=== PATIENT | female | born 1985 | race Caucasian/White ===

== ENCOUNTER → 2017-02-27 | Outpatient (CLI) | payer OTHER ==
--- NOTE | 2017-02-27 08:02 | CT ---
EXAMINATION TYPE: CT brain wo con DATE OF EXAM: 02/27/2017 COMPARISON: NONE HISTORY: Headaches CT DLP: 1005 mGycm Automated exposure control for dose reduction was used. FINDINGS: Central structures are midline. There is no evidence of hydrocephalus. No focal lesion, mass effect o r midline shift is seen. I do not see evidence of intracranial blood. Visualized portions of the paranasal sinuses are clear. There is fluid in several of the mastoid air cells bilaterally. IMPRESSION: 1. NO ACUTE INTRACRANIAL ABNORMALITY. 2. I SUSPECT BILATERAL MASTOIDITIS.
== END | disposition home or self-care (01) ==
LOC: RADCTMAIN 07:36
PROVIDERS: ATTEND Family Medicine
DX: R51 Headache (principal)
CPT/HCPCS: 70450

== ENCOUNTER 2017-10-28 22:27 | Emergency (ER) | payer OTHER ==
[2017-10-28 22:38] VITALS: RESP 18
[2017-10-28] MEDS ORDERED: LORazepam 1 MG TAB PO STA (23:09)
--- NOTE | 2017-10-28 23:21 | ED ---
Recheck HPI - General Chief Complaint: Recheck/Abnormal Lab/Rx Stated Complaint: High BP/confusion-poss med reaction Time Seen by Provider: 10/28/17 22:43 Source: patient Mode of arrival: ambulatory Limitations: no limitations - History of Present Illness Initial Comments: This patient is a 32-year-old woman who presents with a constellation of symptoms that she believes may be related to a medication that started. She states that her physician gave her to take for weight loss. She states that she started this 3 days ago and that since she started taking she just has not felt right. She noted that her blood pressure has been high, she has at times had racing heart. She also Has been having intermittent headaches, feeling dizzy and lightheaded states that she just feels "hazy." Complaint: other Onset/Timin -: days(s) Returns Today for: other Context: other - Related Data Home Medications Medication Instructions Recorded Confirmed Cholecalciferol [Vitamin D3] 4,000 unit PO HS 10/28/17 10/28/17 FLUoxetine HCL [PROzac] 30 mg PO HS 10/28/17 10/28/17 Phentermine HCl [Adipex-P] 37.5 mg PO QAM 10/28/17 10/28/17 Ranitidine HCl 150 mg PO HS 10/28/17 10/28/17 Vitamin E 100 unit PO HS 10/28/17 10/28/17 Allergies Allergy/AdvReac Type Severity Reaction Status Date / Time No Known Allergies Allergy Verified 10/28/17 22:49 Review of Systems ROS Statement: Those systems with pertinent positive or pertinent negative responses have been documented in the HPI. ROS Other: All systems not noted in ROS Statement are negative. Constitutional: Denies: fever, chills, weakness Eyes: Denies: vision change Respiratory: Denies: cough, dyspnea Cardiovascular: Reports: palpitations. Denies: chest pain, edema, syncope Gastrointestinal: Reports: nausea. Denies: abdominal pain, vomiting, diarrhea Genitourinary: Denies: dysuria, hematuria Musculoskeletal: Denies: back pain Skin: Denies: rash Neurological: Reports: headache. Denies: weakness, numbness, paresthesias Psychiatric: Reports: anxiety Past Medical History Past Medical History: No Reported History History of Any Multi-Drug Resistant Organisms: None Reported Past Surgical History: Cholecystectomy Past Psychological History: Anxiety Smoking Status: Former smoker Past Alcohol Use History: None Reported Past Drug Use History: None Reported General Exam Limitations: no limitations General appearance: alert, in no apparent distress Head exam: Present: atraumatic, normocephalic Eye exam: Present: normal appearance. Absent: scleral icterus, conjunctival injection ENT exam: Present: mucous membranes dry Neck exam: Present: normal inspection, full ROM Respiratory exam: Present: normal lung sounds bilaterally. Absent: respiratory distress, wheezes, rales, rhonchi, stridor Cardiovascular Exam: Present: regular rate, normal rhythm, normal heart sounds. Absent: systolic murmur, diastolic murmur, rubs, gallop GI/Abdominal exam: Present: soft. Absent: distended, tenderness, guarding, rebound, rigid Extremities exam: Present: normal inspection, normal capillary refill. Absent: pedal edema, calf tenderness Back exam: Present: normal inspection. Absent: CVA tenderness (R), CVA tenderness (L) Neurological exam: Present: alert, oriented X3, CN II-XII intact, normal gait Skin exam: Present: warm, dry, intact, normal color. Absent: rash Course Vital Signs 10/28/17 10/28/17 22:33 23:26 Temperature 97.8 F 98.5 F Pulse Rate 84 78 Respiratory 18 18 Rate Blood Pressure 180/87 123/70 O2 Sat by Pulse 100 98 Oximetry Disposition Clinical Impression: Medication adverse effect Disposition: HOME SELF-CARE Condition: Good Instructions: Adverse Drug Reaction (ED) Referrals: Madeline Cash III, MD [Primary Care Provider] - 1-2 days
[2017-10-28 23:27] VITALS: BP 123/70; PULSE 78; TEMP 98.5
== END 2017-10-28 23:27 | disposition home or self-care (01) ==
LOC: EC 22:27
DX: R51 Headache (principal); T50.5X5A Adverse effect of appetite depressants, initial encounter; R42 Dizziness and giddiness; R00.0 Tachycardia, unspecified; F41.9 Anxiety disorder, unspecified; Z87.891 Personal history of nicotine dependence; Z79.899 Other long term (current) drug therapy
CPT/HCPCS: 99284

== ENCOUNTER → 2020-07-31 | Outpatient (CLI) | payer OTHER | END | disposition home or self-care (01) | LOC: LABWHC1 13:51 | PROVIDERS: ATTEND Emergency Medicine | DX: Z20.828 Contact with and (suspected) exposure to other viral communicable diseases (principal) | CPT/HCPCS: U0003; C9803 ==

== ENCOUNTER → 2021-01-19 | Outpatient (CLI) | payer OTHER ==
--- NOTE | 2021-01-19 12:06 | CT ---
EXAMINATION TYPE: CT abdomen pelvis w con DATE OF EXAM: 01/19/2021 COMPARISON: None HISTORY: LLQ pain CT DLP: 1899.90 mGycm CONTRAST: CT scan of the abdomen and pelvis is performed with Oral Contrast and with IV Contrast, patient injec michelle with 100 ml mL of Isovue 300. FINDINGS: LUNG BASES-: No visible nodule. No infiltrate. LIVER/GB: Cholecystectomy clips are in place. No space occupying hepatic lesion. Biliary tree is o f normal caliber. PANCREAS: No inflammation. No distinct mass. SPLEEN: No splenic enlargement. No lesion seen. ADRENALS: No nodule. No thickening. KIDNEYS/BLADDER: No hydronephrosis. No nephrolithiasis. Subcentimeter simple cyst lower pole left k idney. Urinary bladder grossly unremarkable. BOWEL: Normal appendix. Normal bowel caliber. No inflammation. GENITAL ORGANS: No gross abnormality. LYMPH NODES: No greater than 1cm abdominal or pelvic lymph nodes are appreciated. AORTA: No significant abnormality. OSSEOUS STRUCTURES: No significant abnormality is seen. OTHER: No significant additional abnormality is seen. IMPRESSION: 1. No significant abnormality to account for the patient's symptoms.
== END | disposition home or self-care (01) ==
LOC: RADCTMAIN 09:34
PROVIDERS: ATTEND Physician Assistant
DX: R10.32 Left lower quadrant pain (principal); Z90.49 Acquired absence of other specified parts of digestive tract
CPT/HCPCS: 74177; Q9967

== ENCOUNTER 2023-05-30 15:33 | Emergency (ER) | payer OTHER ==
[2023-05-30 15:57] VITALS: RESP 16
[2023-05-30] MEDS ORDERED: DEXAMETHASONE SOD PHOSPHATE 10 MG/ML 1 ML VIAL IVP STA (18:05)
[2023-05-30] MEDS ORDERED: KETOROLAC 15 MG/ML 1 ML VIAL IVP STA (18:05)
[2023-05-30] MEDS ORDERED: MAGNESIUM SULFATE-D5W PMX 1 GM in DEXTROSE/WATER 1 100ML.BAG IVPB ONE (18:05)
[2023-05-30 18:40] LABS: ALT 22 U/L (4-34); AST 25 U/L (14-36); African American GFR (CKD) >90 (>60 ml/min/1.73 sqM); Albumin 4.4 g/dL (3.5-5.0); Alkaline Phosphatase 72 U/L (38-126); Anion Gap 6 mmol/L; Blood Urea Nitrogen 16 mg/dL (7-17); Carbon Dioxide 26 mmol/L (22-30); Chloride 105 mmol/L (98-107); Glucose 93 mg/dL (74-99); Non-African American GFR(CKD) >90 (>60 ml/min/1.73 sqM); Potassium 4.4 mmol/L (3.5-5.1); Sodium 137 mmol/L (137-145); Total Bilirubin 0.6 mg/dL (0.2-1.3); Total Protein 7.2 g/dL (6.3-8.2)
[2023-05-30 18:54] LABS: Appearance,Urine Cloudy (Clear); Bacteria,Urine Many /hpf; Bilirubin,Urine Negative (Negative); Blood,Urine Negative (Negative); Color,Urine Colorless; Glucose,Urine (UA) Negative (Negative); Ketones,Urine Negative (Negative); Leukocyte Esterase,Urine Small (Negative); Mucus,Urine Rare /hpf; Nitrite,Urine Negative (Negative); Protein,Urine Negative (Negative); RBC,Urine 2 /hpf (0-5); Specific Gravity,Urine 1.011 (1.001-1.035); Squamous Epithelial Cell,Urine 7 /hpf (0-4); Urobilinogen,Urine <2.0 mg/dL (<2.0); WBC,Urine 9 /hpf (0-5)
--- NOTE | 2023-05-30 19:44 | CT ---
EXAMINATION TYPE: CT brain wo con CT DLP: 1108.4 mGycm, Automated exposure control for dose reduction was used. DATE OF EXAM: 05/30/2023 7:23 PM COMPARISON: 02/27/2017. CLINICAL INDICATION:Female, 37 years old with history of visual disturbance, Migraine x2wks, blurred vision, hypertension. TECHNIQUE: Brain: Axial CT images of the brain were obtained with coronal and sagittal reformats created and rev iewed. Contrast used: None. Oral contrast used: None. FINDINGS: Brain: Extra-axial spaces: No abnormal extra-axial fluid collections. Ventricular system: Within normal limits Cerebral parenchyma: No acute intraparenchymal hemorrhage or mass effect. The mahan-white junction is well differentiated. Cerebellum: Unremarkable. Mass effect: No evidence of midline shift. Intracranial vasculature: unremarkable Soft tissues: Normal. Calvarium/osseous structures: No depressed skull fracture. Paranasal sinuses and mastoid air cells: Mild scattered paranasal sinus disease. Visualized orbits: Orbital contents are intact. IMPRESSION: No acute intracranial process.
[2023-05-30 20:13] LABS: Basophils % (A) 0 %; Eosinophils # (A) 0.1 k/uL (0-0.7); Eosinophils % (A) 1 %; HCT 43.9 % (34.0-46.0); HGB 14.4 gm/dL (11.4-16.0); Lymphocytes % (A) 9 %; MCH 27.2 pg (25.0-35.0); MCHC 32.8 g/dL (31.0-37.0); MCV 83.1 fL (80.0-100.0); Mean Platelet Volume 8.6; Monocytes # (A) 0.1 k/uL (0-1.0); Monocytes % (A) 1 %; Neutrophils # (A) 9.1 k/uL (1.3-7.7); Neutrophils % (A) 88 %; Platelet Count 277 k/uL (150-450); RBC 5.28 m/uL (3.80-5.40); RDW 13.6 % (11.5-15.5); WBC 10.4 k/uL (3.8-10.6)
[2023-05-30 20:18] LABS: INR 0.9 (<1.2); Partial Thromboplastin Time 24.7 sec (22.0-30.0); Prothrombin Time 9.8 sec (9.0-12.0)
--- NOTE | 2023-05-30 20:37 | ED ---
General Adult HPI - General Chief complaint: Neuro Symptoms/Deficit Stated complaint: Headache Time Seen by Provider: 05/30/23 15:40 Source: EMS Mode of arrival: EMS Limitations: no limitations - History of Present Illness Initial comments: 37-year-old female presents to the emergency department reporting acute visual disturbance and headache. States that she was at home and had a headache this morning. She does have a history of frequent headaches and previously was on Topamax. States she does not currently take any medications right now for her headaches. States that she felt like it slightly improved. She then suddenly noticed that she had some blurred vision and had difficulty reading the text messages on her phone. She drove to her grandmother's house and took her blood pressure. Found that it was elevated. States that she did not have a way of getting to the hospital and therefore called EMS. She has no history of high blood pressure. She states that the visual disturbance lasted for 30-40 minutes but has since resolved. EMS did establish an IV. Currently the headache is 8 out of 10. Denies speech difficulties. No unilateral numbness or weakness. Denies fevers. No neck stiffness. No other alleviating, precipitating or modifying factors - Related Data Home Medications Medication Instructions Recorded Confirmed Cholecalciferol [Vitamin D3] 4,000 unit PO HS 10/28/17 10/28/17 FLUoxetine HCL [PROzac] 30 mg PO HS 10/28/17 10/28/17 Phentermine HCl [Adipex-P] 37.5 mg PO QAM 10/28/17 10/28/17 Vitamin E 100 unit PO HS 10/28/17 10/28/17 raNITIdine HCL [Zantac] 150 mg PO HS 10/28/17 10/28/17 Previous Rx's Medication Instructions Recorded Butalb/Acetaminophen/Caffeine 1 - 2 tab PO Q4H PRN #20 tab 05/30/23 [Fioricet 50-325-40] Allergies Allergy/AdvReac Type Severity Reaction Status Date / Time No Known Allergies Allergy Verified 10/28/17 22:49 Review of Systems ROS Statement: Those systems with pertinent positive or pertinent negative responses have been documented in the HPI. ROS Other: All systems not noted in ROS Statement are negative. Past Medical History Past Medical History: No Reported History History of Any Multi-Drug Resistant Organisms: None Reported Past Surgical History: Cholecystectomy, Tubal Ligation Additional Past Surgical History / Comment(s): Breast reduction, carpal tunnel surgery Past Psychological History: Anxiety Past Alcohol Use History: None Reported Past Drug Use History: None Reported General Exam Limitations: no limitations General appearance: alert, in no apparent distress Head exam: Present: atraumatic, normocephalic, normal inspection Eye exam: Present: normal appearance, PERRL, EOMI. Absent: scleral icterus, conjunctival injection, periorbital swelling ENT exam: Present: normal exam, mucous membranes moist Neck exam: Present: normal inspection. Absent: tenderness, meningismus, lymphadenopathy Respiratory exam: Present: normal lung sounds bilaterally. Absent: respiratory distress, wheezes, rales, rhonchi, stridor Cardiovascular Exam: Present: regular rate, normal rhythm, normal heart sounds. Absent: systolic murmur, diastolic murmur, rubs, gallop, clicks GI/Abdominal exam: Present: soft, normal bowel sounds. Absent: distended, tenderness, guarding, rebound, rigid Extremities exam: Present: normal inspection, full ROM, normal capillary refill. Absent: tenderness, pedal edema, joint swelling, calf tenderness Back exam: Present: normal inspection Neurological exam: Present: alert, oriented X3, CN II-XII intact Psychiatric exam: Present: normal affect, normal mood Skin exam: Present: warm, dry, intact, normal color. Absent: rash Course Vital Signs 05/30/23 05/30/23 15:39 20:47 Temperature 98.3 F 98.4 F Pulse Rate 74 86 Respiratory 16 16 Rate Blood Pressure 157/105 133/86 O2 Sat by Pulse 98 97 Oximetry Medical Decision Making - Medical Decision Making Was pt. sent in by a medical professional or institution (, PA, CENTER PUNCH OPERATOR, urgent care, hospital, or usp...) When possible be specific @ -No Did you speak to anyone other than the patient for history (EMS, parent, family, police, friend...)? What history was obtained from this source @ -Spoke with EMS for history Did you review nursing and triage notes (agree or disagree)? Why? @ -I reviewed and agree with nursing and triage notes Were old charts reviewed (outside hosp., previous admission, EMS record, old EKG, old radiological studies, urgent care reports/EKG's, usp records)? Report findings @ -No old charts were reviewed Differential Diagnosis (chest pain, altered mental status, abdominal pain women, abdominal pain men, vaginal bleeding, weakness, fever, dyspnea, syncope, headache, dizziness, GI bleed, back pain, seizure, CVA, palpatations, mental health, musculoskeletal)? @ -Differential Headache: Migraine, tension, cluster, carbon monoxide, central venous thrombosis, pension karma temporal arteritis, acute closure glaucoma, intercranial hemorrhage, mastoiditis, sinusitis, head injury, this is not meant to be an all-inclusive list. EKG interpreted by me (3pts min.). @ -Yes and demonstrates sinus rhythm with rate of 66. UT interval 159. QRS 94. QTC of 391. No acute ST segment elevations or depressions X-rays interpreted by me (1pt min.). @ -None done CT interpreted by me (1pt min.). @ -Yes and demonstrates no acute intracranial process U/S interpreted by me (1pt. min.). @ -None done What testing was considered but not performed or refused? (CT, X-rays, U/S, labs)? Why? @ -None What meds were considered but not given or refused? Why? @ -Reglan however she states that this medication gives her panic attack Did you discuss the management of the patient with other professionals (professionals i.e. , PA, CENTER PUNCH OPERATOR, lab, RT, psych nurse, bilingual social worker, armature winder helper repair, teacher, tax revenue officer, case packer)? Give summary @ -No Was smoking cessation discussed for >3mins.? @ -No Was critical care preformed (if so, how long)? @ -No Were there social determinants of health that impacted care today? How? (Homelessness, low income, unemployed, alcoholism, drug addiction, transportation, low edu. Level, literacy, decrease access to med. care, retirement, r ehab)? @ -No Was there de-escalation of care discussed even if they declined (Discuss DNR or withdrawal of care, Hospice)? DNR status @ -No What co-morbidities impacted this encounter? (DM, HTN, Smoking, COPD, CAD, Cancer, CVA, ARF, Chemo, Hep., AIDS, mental health diagnosis, sleep apnea, morbid obesity)? @ -Chronic migraines Was patient admitted / discharged? Hospital course, mention meds given and route, prescriptions, significant lab abnormalities, going to OR and other pertinent info. @ -Upon arrival patient was placed into room 20. A thorough history and physical exam was performed. IV is established and laboratory studies are conducted. She was given Toradol, Decadron and magnesium. CT is performed. Results are discussed with the patient. She reports that her headache is improved at this time. I did offer further pain medications however she refused. I did discuss the diagnosis, differential treatment options. Patient was agreeable to trying Fioricet for her frequent migraines at home. She has no acute neurologic findings at this time. She will be discharged and given follow-up for neurologists in [facility]. Instructed to return for any new or worsening symptoms. Patient was agreeable with this plan she was discharged in stable condition Undiagnosed new problem with uncertain prognosis? @ -Yes Drug Therapy requiring intensive monitoring for toxicity (Heparin, Nitro, Insulin, Cardizem)? @ -No Were any procedures done? @ -No Diagnosis/symptom? @ -Acute transient visual disturbance, transient hypertension - resolved, acute cephalgia Acute, or Chronic, or Acute on Chronic? @ -Acute Uncomplicated (without systemic symptoms) or Complicated (systemic symptoms)? @ -complicated Side effects of treatment? @ -No Exacerbation, Progression, or Severe Exacerbation? @ -No Poses a threat to life or bodily function? How? (Chest pain, USA, PA, pneumonia, PE, COPD, DKA, ARF, appy, cholecystitis, CVA, Diverticulitis, Homicidal, Suicidal, threat to staff... and all critical care pts) @ -No - Lab Data Result diagrams: 05/30/23 19:53 05/30/23 18:08 Lab Results 05/30/23 05/30/23 05/30/23 Range/Units 18:08 18:08 18:08 WBC (3.8-10.6) k/uL RBC (3.80-5.40) m/uL Hgb (11.4-16.0) gm/dL Hct (34.0-46.0) % MCV (80.0-100.0) fL MCH (25.0-35.0) pg MCHC (31.0-37.0) g/dL RDW (11.5-15.5) % Plt Count (150-450) k/uL MPV Neutrophils % % Lymphocytes % % Monocytes % % Eosinophils % % Basophils % % Neutrophils # (1.3-7.7) k/uL Lymphocytes # (1.0-4.8) k/uL Monocytes # (0-1.0) k/uL Eosinophils # (0-0.7) k/uL Basophils # (0-0.2) k/uL PT (9.0-12.0) sec INR (<1.2) APTT (22.0-30.0) sec Sodium 137 (137-145) mmol/L Potassium 4.4 (3.5-5.1) mmol/L Chloride 105 (98-107) mmol/L Carbon Dioxide 26 (22-30) mmol/L Anion Gap 6 mmol/L BUN 16 (7-17) mg/dL Creatinine 0.50 L (0.52-1.04) mg/dL Est GFR (CKD-EPI)AfAm >90 (>60 ml/min/1.73 sqM) Est GFR (CKD-EPI)NonAf >90 (>60 ml/min/1.73 sqM) Glucose 93 (74-99) mg/dL Calcium 9.0 (8.4-10.2) mg/dL Total Bilirubin 0.6 (0.2-1.3) mg/dL AST 25 (14-36) U/L ALT 22 (4-34) U/L Alkaline Phosphatase 72 (38-126) U/L Total Protein 7.2 (6.3-8.2) g/dL Albumin 4.4 (3.5-5.0) g/dL Urine Color Colorless Urine Appearance Cloudy H (Clear) Urine pH 7.0 (5.0-8.0) Ur Specific [place] 1.011 (1.001-1.035) Urine Protein Negative (Negative) Urine Glucose (UA) Negative (Negative) Urine Ketones Negative (Negative) Urine Blood Negative (Negative) Urine Nitrite Negative (Negative) Urine Bilirubin Negative (Negative) Urine Urobilinogen <2.0 (<2.0) mg/dL Ur Leukocyte Esterase Small H (Negative) Urine RBC 2 (0-5) /hpf Urine WBC 9 H (0-5) /hpf Ur Squamous Epith Cells 7 H (0-4) /hpf Urine Bacteria Many H (None) /hpf Urine Mucus Rare H (None) /hpf Urine HCG, Qual Not Detected (Not Detectd) 05/30/23 05/30/23 Range/Units 19:53 19:53 WBC 10.4 (3.8-10.6) k/uL RBC 5.28 (3.80-5.40) m/uL Hgb 14.4 (11.4-16.0) gm/dL Hct 43.9 (34.0-46.0) % MCV 83.1 (80.0-100.0) fL MCH 27.2 (25.0-35.0) pg MCHC 32.8 (31.0-37.0) g/dL RDW 13.6 (11.5-15.5) % Plt Count 277 (150-450) k/uL MPV 8.6 Neutrophils % 88 % Lymphocytes % 9 % Monocytes % 1 % Eosinophils % 1 % Basophils % 0 % Neutrophils # 9.1 H (1.3-7.7) k/uL Lymphocytes # 1.0 (1.0-4.8) k/uL Monocytes # 0.1 (0-1.0) k/uL Eosinophils # 0.1 (0-0.7) k/uL Basophils # 0.0 (0-0.2) k/uL PT 9.8 (9.0-12.0) sec INR 0.9 (<1.2) APTT 24.7 (22.0-30.0) sec Sodium (137-145) mmol/L Potassium (3.5-5.1) mmol/L Chloride (98-107) mmol/L Carbon Dioxide (22-30) mmol/L Anion Gap mmol/L BUN (7-17) mg/dL Creatinine (0.52-1.04) mg/dL Est GFR (CKD-EPI)AfAm (>60 ml/min/1.73 sqM) Est GFR (CKD-EPI)NonAf (>60 ml/min/1.73 sqM) Glucose (74-99) mg/dL Calcium (8.4-10.2) mg/dL Total Bilirubin (0.2-1.3) mg/dL AST (14-36) U/L ALT (4-34) U/L Alkaline Phosphatase (38-126) U/L Total Protein (6.3-8.2) g/dL Albumin (3.5-5.0) g/dL Urine Color Urine Appearance (Clear) Urine pH (5.0-8.0) Ur Specific [place] (1.001-1.035) Urine Protein (Negative) Urine Glucose (UA) (Negative) Urine Ketones (Negative) Urine Blood (Negative) Urine Nitrite (Negative) Urine Bilirubin (Negative) Urine Urobilinogen (<2.0) mg/dL Ur Leukocyte Esterase (Negative) Urine RBC (0-5) /hpf Urine WBC (0-5) /hpf Ur Squamous Epith Cells (0-4) /hpf Urine Bacteria (None) /hpf Urine Mucus (None) /hpf Urine HCG, Qual (Not Detectd) Disposition Clinical Impression: Visual disturbance, Migraine Disposition: HOME SELF-CARE Condition: Stable Instructions (If sedation given, give patient instructions): Migraine Headache (ED) Additional Instructions: Please follow-up with a neurologist for your migraines. return for any new or worsening symptoms Prescriptions: Butalb/Acetaminophen/Caffeine [Fioricet 50-325-40] 1 - 2 tab PO Q4H PRN #20 tab PRN Reason: Headache Is patient prescribed a controlled substance at d/c from ED?: No Referrals: Adela Verma MD [Primary Care Provider] - 1-2 days Reginald Ventura MD [Medical Doctor] - 1-2 days Robert Wallis DO [STAFF PHYSICIAN] - 1-2 days Julio Mabry MD [STAFF PHYSICIAN] - 1-2 days Catalina James MD [REFERRING] - 1-2 days Natalya James MD [REFERRING] - 1-2 days Time of Disposition: 20:36
[2023-05-30 20:56] VITALS: BP 133/86; PULSE 86; TEMP 98.4
== END 2023-05-30 21:05 | disposition home or self-care (01) ==
LOC: EC 15:33
DX: H53.9 Unspecified visual disturbance (principal); G43.909 Migraine, unspecified, not intractable, without status migrainosus; Z86.59 Personal history of other mental and behavioral disorders; Z90.49 Acquired absence of other specified parts of digestive tract
CPT/HCPCS: 36415; 80053; 85025; 85610; 85730; 81001; 81025; 70450; 99285; 96365; 96375 ×2; J1100; J3475; J1885

== ENCOUNTER → 2024-08-19 | Outpatient (CLI) | payer OTHER ==
--- NOTE | 2024-08-20 17:41 | US ---
EXAMINATION TYPE: US abdomen complete DATE OF EXAM: 08/19/2024 COMPARISON: CT 2020, US 2011 CLINICAL INDICATION: Female, 39 years old with history of R10.12 LEFT UPPER QUADRANT PAIN; Left upper quadrant pain x 1 year. Patient states the pain has gotten worse x a couple months. Hx cholecystecto my. TECHNIQUE: Grayscale and color Doppler imaging of the abdomen was performed. FINDINGS: EXAM MEASUREMENTS: Liver Length: 16.3 cm Gallbladder Wall: Cholecystectomy CBD: 0.26 cm, color Doppler imaging was utilized to isolate the common bile duct for measurement. Spleen: 10.0 cm Right Kidney: 11.3 x 5.2 x 4.5 cm Left Kidney: 10.9 x 5.5 x 5.2 cm LOGGING [employer]IPMENT MECH[employer]IC NOTES: Exam is limited due to body habitus and gas. Pancreas: Not well visualized Liver: Appears slightly coarse echotexture. Gallbladder: Cholecystectomy Evidence for sonographic Long's sign: No CBD: Appears wnl Spleen: Appears wnl Right Kidney: Renal pelvis appears prominent. Left Kidney: *Hyperechoic focus seen upper pole: 0.6 x 0.5 x 0.3 cm. Upper IVC: Appears wnl Abd Aorta: Portions seen appear wnl. Slightly limited due to gas. IMPRESSION: 1. Coarsened echotexture to liver correlate with markers for hepatocellular disease. 2. Left nonobstructing renal calculus [facility], , 08/20/2024 5:38 PM
== END | disposition home or self-care (01) ==
LOC: RADUSWWP 08-13 07:58
PROVIDERS: ATTEND Family Medicine
DX: Z53.9 Procedure and treatment not carried out, unspecified reason (principal)

== ENCOUNTER → 2024-11-19 | Outpatient (CLI) | payer OTHER ==
--- NOTE | 2024-11-19 14:59 | MM ---
Reason for Exam: Screening (asymptomatic). Patient History: Menarche at age 11. First Full-Term at age 15. Premenopausal. 2012, Bilateral Reduction. Maternal aunt had breast cancer, age 50. Risk Values: Galina 5 year model risk: 0.4%. NCI Lifetime model risk: 7.3%. Tissue Density: The breasts are heterogeneously dense, which may obscure small masses. Findings: Analyzed By CAD. There is no suspicious group of microcalcifications or new suspicious mass in either breast. And benign-appearing calcifications. Overall Assessment: Benign, BI-RAD 2 Management: Screening Mammogram of both breasts in 1 year. . Patient should continue monthly self-breast exams. A clinical breast exam by your physician is recommended on an annual basis. This exam should not preclude additional follow-up of suspicious palpable abnormalities. Note on Galina scores and lifetime risk: 1. A Galina score greater than 3% is considered moderate risk. If this is the case, consider specialist referral to assess eligibility for a risk reducing agent. 2. If overall lifetime risk for the development of breast cancer is 20% or higher, the patient may qualify for future screening with alternating mammogram and breast MRI. [facility], , 11/19/2024 2:56 PM. Electronically signed and approved by: Larry Lopez M.D. Radiolog[facility]
== END | disposition home or self-care (01) ==
LOC: RADMAMWWP 14:01
PROVIDERS: ATTEND Obstetrics & Gynecology
DX: Z12.31 Encounter for screening mammogram for malignant neoplasm of breast (principal); R92.333 Mammographic heterogeneous density, bilateral breasts; R92.1 Mammographic calcification found on diagnostic imaging of breast; Z80.3 Family history of malignant neoplasm of breast
CPT/HCPCS: 77063; 77067

== ENCOUNTER → 2024-12-20 | Outpatient (CLI) | payer OTHER | END | disposition home or self-care (01) | LOC: LABWHC1 13:45 | PROVIDERS: ATTEND Anesthesiology | DX: Z01.818 Encounter for other preprocedural examination (principal); I10 Essential (primary) hypertension | CPT/HCPCS: 36415; 93005 ==

== ENCOUNTER 2024-12-23 05:55 | Day surgery (SDC) | payer OTHER ==
[2024-12-23] MEDS ORDERED: MORPHINE SULFATE 4 MG/ML SYRINGE IV PRN (05:57)
[2024-12-23] MEDS: IV FLUID CONTINUATION 1,000 ML IV ONE (06:21)
[2024-12-23 06:54] LABS: Glucose,Whole Blood 95 mg/dL (70-110)
[2024-12-23] MEDS: MIDAZOLAM 2 MG/2 ML VIAL IV ONE (06:55)
[2024-12-23] MEDS ORDERED: HYDROmorphone 0.5 MG/0.5 ML SYRINGE IVP PRN (07:00)
[2024-12-23] MEDS: diphenhydrAMINE 50 MG/ML 1 ML VIAL IVP STA (07:25)
[2024-12-23] MEDS: ONDANSETRON 4 MG/2 ML VIAL IVP ONE (07:26)
[2024-12-23] MEDS: DEXAMETHASONE SOD PHOSPHATE 4 MG/ML 1 ML VIAL IV ONE ×3 (07:26→11:11)
[2024-12-23] MEDS ORDERED: LIDOCAINE 1% INJ 10MG/ML (20 ML MDV) ONE (07:33)
[2024-12-23] MEDS ORDERED: MORPHINE SULFATE (PF) 0.3 MG/0.3 ML SYR ONE (07:33)
[2024-12-23] MEDS ORDERED: KETOROLAC 15 MG/ML 1 ML VIAL ONE (07:33)
[2024-12-23] MEDS ORDERED: ROCURONIUM 10 MG/ML (5 ML VIAL) IV ONE (07:33)
[2024-12-23] MEDS ORDERED: GLYCOPYRROLATE 0.2 MG/ML 2 ML VIAL ONE (07:33)
[2024-12-23] MEDS ORDERED: NEOSTIGMINE 1 MG/ML 10 ML VIAL ONE (07:33)
[2024-12-23] MEDS ORDERED: MIDAZOLAM 2 MG/2 ML VIAL ONE (07:33)
[2024-12-23] MEDS ORDERED: SUCCINYLCHOLINE CHLORIDE 200 MG/10 ML VIAL IV ONE (07:33)
[2024-12-23] MEDS ORDERED: PROPOFOL 10 MG/ML 20 ML VIAL IV ONE (07:33)
[2024-12-23] MEDS ORDERED: fentaNYL (PF) 50 MCG/ML 2 ML AMP ONE (07:33)
[2024-12-23] MEDS: ceFAZolin 2 GM in DEXTROSE 5% IN WATER 50 ML IVPB PRN (07:38)
--- NOTE | 2024-12-23 07:40 | P.HPOB ---
History of Present Illness H&P Date: 12/23/24 Chief Complaint: Dysmenorrhea, pelvic pain Ms. Lancaster is a 39 year old with dysmenorrhea and pelvic pain who presents for definitive management with hysterectomy. She did have an EMB in 2020 without improvement in menses. Past Medical History Past Medical History: Asthma, GERD/Reflux, Hearing Disorder / Deafness, Hypertension Additional Past Medical History / Comment(s): asthma as a child, ashu [place]-has hearing aids, but doesn't wear often. History of Any Multi-Drug Resistant Organisms: None Reported Past Surgical History: Breast Surgery, Cholecystectomy, Tubal Ligation, Uterine Ablation Additional Past Surgical History / Comment(s): Breast reduction, carpal tunnel surgery, colonoscopy, EGD Past Anesthesia/Blood Transfusion Reactions: No Reported Reaction, Family History of Problems w/ Anesthesia Additional Past Anesthesia/Blood Transfusion Reaction / Comment(s): mom has hard time coming out of anesthesia Smoking Status: Never smoker - Past Family History Mother Family Medical History: Deep Vein Thrombosis (DVT) Father Family Medical History: Hypertension, Myocardial Infarction (GA) Medications and Allergies Home Medications Medication Instructions Recorded Confirmed Type Cholecalciferol [Vitamin D3] 4,000 unit PO HS 10/28/17 12/23/24 History FLUoxetine HCL [PROzac] 40 mg PO HS 10/28/17 12/23/24 History raNITIdine HCL [Zantac] 150 mg PO HS 10/28/17 12/23/24 History Pantoprazole Sodium [Protonix] 20 mg PO HS 10/04/24 12/23/24 History lisinopriL [Zestril] 20 mg PO HS 10/04/24 12/23/24 History Allergies Allergy/AdvReac Type Severity Reaction Status Date / Time metoclopramide [From Reglan] AdvReac severe Verified 12/23/24 06:22 anxiety Exam Vital Signs Temp Pulse Resp BP Pulse Ox 12/23/24 07:15 64 16 113/59 100 12/23/24 06:35 97.8 F 70 16 116/62 97 Intake and Output 12/22/24 12/23/24 12/23/24 22:59 06:59 14:59 Intake Total 300 Balance 300 Intake: IV 300 Other: Weight 108.3 kg Focused physical exam is performed. The patient is in no apparent distress, breathing is non-labored. Abdomen soft, non-tender. Extremities are non-tender and non-edematous. Assessment and Plan Assessment: 39year old presenting for surgical management for dysmenorrhea and pelvic pain Plan: Risks, benefits, and alternatives to Robotic Assisted Total Laparoscopic Hysterectomy, Bilateral Salpingectomy, and Diagnostic Cystoscopy discussed with patient including risk of bleeding, infection, and damage to surrounding structures including bladder/bowel/ureters. The patient understands these risks and desires to proceed with surgery as discussed.
[2024-12-23] MEDS: BUPIVACAINE (PF) 0.25% 30 ML VIAL SQ ONE ×2 (08:15→09:00)
[2024-12-23] MEDS ORDERED: SIMETHICONE 80 MG CHEWABLE PO PRN (09:31)
--- NOTE | 2024-12-23 10:05 | P.OP ---
Date of Procedure: 12/23/24 Preoperative Diagnosis: 1. Dysmenorrhea 2. Pelvic Pain Postoperative Diagnosis: Same Procedure(s) Performed: Robotic Assisted Total Laparoscopic Hysterectomy, Bilateral Salpingectomy, and Diagnostic Cystoscopy Implants: None Anesthesia: ANDREY Surgeon: Layla Vergara Consulting Application Engineer #1: Kiana Schrader Estimated Blood Loss (ml): 100 IV fluids (ml): 600 Urine output (ml): 150 Pathology: other (cervix, uterus, bilateral fallopian tubes) Disposition: floor Indications for Procedure: Ms. Lancaster is a 39 year old who presents for surgical management of dysmenorrhea and cyclic pelvic pain with RATLH, BS, Dx Cystoscopy. Risks, benefits, and alternatives to surgery are discussed with the patient including risk of bleeding, infection, damage to surrounding structures including bladder/bowel/ureters, and post-operative VTE. The patient understands these risks and desires to proceed with surgery as discussed. All questions answered. Operative Findings: Normal-appearing uterus and ovaries. Bilateral fallopian tubes are status post tubal ligation. Pelvis otherwise within normal limits. Description of Procedure: Prior to the beginning of the procedure, the team paused to verify the patient's identity, the procedure to be performed (in accordance with the consent,) and the correct side/site. The patient was positioned appropriately. All relevant images and results were properly labeled and displayed. We addressed antibiotic prophylaxis and fluids for irrigation as applicable to this patient. Any safety precautions were addressed. The patient was taken to the operating room where general anesthesia was induced without difficulty. She was then positioned in the [facility] Positioning included placing her arms at her sides. After the patient was placed in what was felt to be a neurologically safe position, deep Trendelenburg position was tested prior to the operative procedure, to ensure that she would not move on the operating table. The patient was then prepped and draped in the normal sterile fashion for a combined abdominovaginal surgery. A Nicholson catheter was placed in the bladder for continuous drainage. Uterus was sounded to 7 cm. V-Care manipulator was placed in the uterus for manipulation. Attention was then placed to the abdomen. The normal length Veress needle was introduced into the abdominal cavity while tenting the abdominal wall. Low pressure was noted confirming appropriate placement. The abdomen was then insufflated to 15mmHg for the remainder of the case. The Veress needle was removed, and an 8 mm port was placed at the umbilical site under direct laparscopic visualization and there was no evidence of injury from the trocar placement. Visualization of the intraabdominal cavity showed normal pelvic anatomy without evidence of adhesions. The port sites for the remainder of the case were then measured out and placed under direct visualization. On the left side, one 8 mm robotic assist port and one 10 mm assist port were placed. On the right side, one 8 mm robotic port was placed. The [employer] robot was then brought to the operative field in a lateral docking s tyle to the left of the patient and the robot was docked to the ports. All robotic instruments were brought into the pelvis under direct visualization with monopolar scissors in arm #3 and vessel sealer in arm #1. Bilateral ureters were visualized prior to starting the surgery. The right fallopian tube was grasped at the fimbriated end, was cauterized and cut to the level fo the uterine cornua. The right uteroovarian ligement was cauterized and cut. The right round ligament was cauterized and cut. Broad ligament was opened and bladder flap created. This was repeated on the left side. The peritoneum of the bilateral broad ligaments was then taken down and monopolar cautery used to skeletonize the uterine arteries bilaterally. During the course of this dissection, the anterior leaf of the broad ligament was also taken down over the anterior aspect of the uterus and cervix to create a bladder flap. The bladder was then dissected off the cervix and upper vagina with the monopolar scissors and gentle blunt dissection. The bilateral uterine arteries were then cauterized and divided at the level of the internal cervical os. The monopolar cautery was used to incise the vaginal cuff. The uterus, along with the cervix was removed vaginally. Cuff was closed in with 0-Stratifix sutures. Surgicel powder was placed along the pedicles and vaginal cuff for bleeding prophylaxis. Excellent hemostasis was noted at this time. A 70 degree cystoscopy was performed which confirmed no suture placement within the bladder, no trauma to the bladder. Good efflux was noted from both ureteric orifices. The robot was undocked from the trocars and brought out of the operative field. The remainder of the ports were removed, and the gas was allowed to escape. All skin incisions were infiltrated with lidocaine and closed with 4-0 Monocryl and dermabond. Hemostasis was noted to be excellent throughout, and final sponge, instrument, and needle count was noted to be correct. The patient was moved back to the preoperative holding area in stable condition having tolerated the procedure well.
[2024-12-23] MEDS: LACTATED RINGERS 1,000 ML IV SCH ×2 (11:11)
[2024-12-23] MEDS: IBUPROFEN 800 MG TAB PO SCH (11:40)
[2024-12-23] MEDS: NALBUPHINE 10 MG/ML (10 ML MDV) IV PRN (11:59)
[2024-12-23] MEDS: ACETAMINOPHEN TAB 500 MG TAB PO SCH (17:28)
[2024-12-23] MEDS: SENNOSIDES-DOCUSATE SODIUM 1 EACH TAB PO SCH (22:22)
[2024-12-24 06:56] LABS: Basophils # (A) 0.03 10*3/uL (0.00-0.10); Basophils % (A) 0.3 %; Eosinophils # (A) 0.04 10*3/uL (0.04-0.35); Eosinophils % (A) 0.4 %; HCT 34.1 % (37.2-46.3); HGB 10.9 g/dL (12.0-15.0); Lymphocytes # (A) 1.55 10*3/uL (0.90-5.00); Lymphocytes % (A) 16.8 %; MCH 26.1 pg (27.0-32.0); MCV 81.8 fL (80.0-97.0); Mean Platelet Volume 10.6 fL (9.5-12.2); Monocytes % (A) 5.4 %; Neutrophils # (A) 7.07 10*3/uL (1.80-7.70); Neutrophils % (A) 76.8 %; Platelet Count 225 10*3/uL (140-440); RBC 4.17 10*6/uL (4.10-5.20); RDW 14.6 % (11.5-14.5); WBC 9.22 10*3/uL (4.50-10.00)
[2024-12-24 08:22] VITALS: BP 99/63; PULSE 66; RESP 14; TEMP 98.8
--- NOTE | 2024-12-24 09:51 | P.DS ---
Providers Date of admission: 12/23/2024 Expected date of discharge: 12/24/24 Attending physician: Layla Vergara MD Primary care physician: [facility] Course: Ms. Lancaster is a 39 year old female POD#1 s/p Robotic Assisted Total Laparoscopic Hysterectomy, Bilateral Salpingectomy, and Diagnostic Cystectomy for dysmenorrhea and pelvic pain. The patient is doing well this morning and had no acute events overnight. She has no complaints this morning. She reports minimal vaginal bleeding, passing flatus, voiding without difficulty, ambulating, and eating/drinking without nausea or vomiting. She denies chest pain, shortness of breathing, fevers, or chills overnight. She denies pain or swelling in the legs. Postoperative restrictions are reviewed with the patient including pelvic rest for 6 weeks, no lifting heavier than 15 pounds for 6 weeks. The patient is encouraged to call the office if she experiences any heavy bleeding, foul-smelling discharge, breast complaints, or any if she has any other concerns. She will follow up in the office with in 2 weeks for postoperative exam. All questions are answered. Assessment: 39 year old female POD#1 s/p XI MCALLISTER, dx Cystoscopy Patient Condition at Discharge: Good Plan - Discharge Summary Discharge Rx Participant: No New Discharge Prescriptions: New Ferrous Sulfate [Iron (65 MG Elemental)] 325 mg PO DAILY #30 tab oxyCODONE HCL [Roxicodone] 5 mg PO Q6HR PRN 3 Days #12 tab PRN Reason: Breakthrough Pain Ibuprofen [Motrin] 600 mg PO Q6HR PRN #30 tab PRN Reason: Mild Pain (Scale 1 To 3) Acetaminophen Tab [Tylenol] 650 mg PO Q6H PRN #30 tab PRN Reason: Mild Pain (Scale 1 To 3) No Action raNITIdine HCL [Zantac] 150 mg PO HS Cholecalciferol [Vitamin D3] 4,000 unit PO HS FLUoxetine HCL [PROzac] 40 mg PO HS lisinopriL [Zestril] 20 mg PO HS Pantoprazole Sodium [Protonix] 20 mg PO HS Discharge Medication List Cholecalciferol [Vitamin D3] 4,000 unit PO HS 10/28/17 [History] FLUoxetine HCL [PROzac] 40 mg PO HS 10/28/17 [History] raNITIdine HCL [Zantac] 150 mg PO HS 10/28/17 [History] Pantoprazole Sodium [Protonix] 20 mg PO HS 10/04/24 [History] lisinopriL [Zestril] 20 mg PO HS 10/04/24 [History] Acetaminophen Tab [Tylenol] 650 mg PO Q6H PRN #30 tab 12/24/24 [Rx] Ferrous Sulfate [Iron (65 MG Elemental)] 325 mg PO DAILY #30 tab 12/24/24 [Rx] Ibuprofen [Motrin] 600 mg PO Q6HR PRN #30 tab 12/24/24 [Rx] oxyCODONE HCL [Roxicodone] 5 mg PO Q6HR PRN 3 Days #12 tab 12/24/24 [Rx] Follow up Appointment(s)/Referral(s): Layla Vergara MD [STAFF PHYSICIAN] - 2 Weeks Activity/Diet/Wound Care/Special Instructions: Postoperative Instructions 1. No heavy lifting or straining (exercising) until after 6 week checkup. 2. Do not resume sexual relations for 6 weeks or longer if uncomfortable. 3. Keep abdominal incision clean and dry: You may wear a dressing if more comfortable. 4. Keep any areas repaired with stitches clean and dry. 5. Call the office, , within the next week to make appointment for your 2 week checkup 6. Report any of the following occurrences to the doctor promptly: a. Heavy, excessive bleeding b. Chills, fever c. Burning or frequency of urination d. Pain or redness around the incisions Discharge Disposition: HOME SELF-CARE
--- NOTE | 2024-12-26 19:07 | P.ANPRN ---
Procedure Note - Anesthesia - Epidural/Spinal Spinal Time Out Performed: Yes Date of Procedure: 12/23/24 Procedure Start Time: 06:55 Procedure Stop Time: 07:11 Location of Patient: PreOp Indication: Acute Post-Operative Pain, Requested by Surgeon Sedation Type: Sedate with meaningful contact maintained Preparation: Sterile Prep Position: Sitting Needle Guage: 25 Blood Aspirated: No Pain Paresthesia on Injection Noted: No Events: Uneventful and Well Tolerated (Duramorph 3 mics plus fentanyl 25 mics given intrathecally)
--- NOTE | 2024-12-26 19:09 | P.PN ---
Progress Note - Text 12/24/24 633am 39-year-old female status post laparoscopic vaginal hysterectomy. Patient had spinal Duramorph for postop pain control, patient seen and evaluated for postop pain control, patient has a VAS of 2 complaint of nausea vomiting or pruritus
== END 2024-12-24 13:59 | disposition home or self-care (01) ==
LOC: OR 05:55 → 4FBP 09:21 → OR 12-24 13:59
PROVIDERS: ATTEND Obstetrics & Gynecology
DX: N94.6 Dysmenorrhea, unspecified (principal); R10.2 Pelvic and perineal pain; N88.2 Stricture and stenosis of cervix uteri; I10 Essential (primary) hypertension; J45.909 Unspecified asthma, uncomplicated; K21.9 Gastro-esophageal reflux disease without esophagitis; Z79.899 Other long term (current) drug therapy; Z88.8 Allergy status to other drugs, medicaments and biological substances; Z98.51 Tubal ligation status
CPT/HCPCS: 58571; S2900; 81025; 85025; 88307